=== PATIENT | female | born 1980 | race Caucasian/White ===

== ENCOUNTER → 2018-11-06 | Outpatient (CLI) | payer MEDICAID | LOC: FIMAGING 11:40 | PROVIDERS: ATTEND Obstetrics & Gynecology | DX: O09.522 Supervision of elderly multigravida, second trimester (principal); O34.219 Maternal care for unspecified type scar from previous cesarean delivery; Z3A.21 21 weeks gestation of pregnancy ==

== ENCOUNTER → 2019-01-15 | Outpatient (CLI) | payer MEDICAID | LOC: FIMAGING 11:33 ==